=== PATIENT | female | born 1950 | race Caucasian/White ===

== ENCOUNTER 2020-03-17 10:12 | Observation (INO) | payer MEDICARE, OTHER ==
[~2020-03-17] VITALS: Ht 165.1 cm; Wt 89.7 kg
[2020-03-17] MEDS ORDERED: NOVOLOG FL100 UNIT/3 SC (10:47)
[2020-03-17] MEDS ORDERED: LEVEMIR FL100 UNIT/2 SC (10:48)
[2020-03-17] MEDS ORDERED: METO25ER PO (10:49)
[2020-03-17] MEDS ORDERED: Amiodarone HCl200 MG PO (10:49)
[2020-03-17] MEDS ORDERED: ATOR80 PO (10:50)
[2020-03-17] MEDS ORDERED: DEXL60CA3 PO (10:50)
[2020-03-17] MEDS ORDERED: Synthroid200 MCG PO (10:51)
[2020-03-17] MEDS ORDERED: DULO60 PO ×2 (10:52→18:14)
[2020-03-17] MEDS ORDERED: TRAM50 PO (10:52)
[2020-03-17] MEDS ORDERED: COMPAZINE10 MG PO (10:52)
[2020-03-17] MEDS ORDERED: Aspirin EC81 MG PO (10:53)
[2020-03-17 10:55] LABS: BASOPHILS ABSOLUTE AUTO 0.04 K/mm3 (0.00-0.23); BASOPHILS PERCENT AUTO 1 % (0-2); EOSINOPHILS ABSOLUTE AUTO 0.19 K/mm3 (0.00-0.68); EOSINOPHILS PERCENT AUTO 3 % (0-6); Hematocrit 32.5 % (33.0-51.0); Hemoglobin 9.6 g/dL (11.5-16.0); IMMATURE GRAN ABSOLUTE AUTO 0.01 K/mm3 (0.00-0.10); IMMATURE GRAN PERCENT AUTO 0 % (0-1); LYMPHOCYTES ABSOLUTE AUTO 2.72 K/mm3 (0.84-5.20); LYMPHOCYTES PERCENT AUTO 36 % (21-46); MONOCYTES ABSOLUTE AUTO 1.04 K/mm3 (0.16-1.47); MONOCYTES PERCENT AUTO 14 % (4-13); Mean Corpuscular HGB 27.4 pg (26.0-34.0); Mean Corpuscular HGB Conc 29.5 g/dL (31.5-36.5); Mean Corpuscular Volume 93 fL (80-100); Mean Platelet Volume 9.9 fL (9.1-12.4); NEUTROPHILS PERCENT AUTO 47 % (41-73); NRBC ABSOLUTE 0.02 K/mm3 (0.00-0.02); NRBC Auto 0.3 /100 WBC (0.0-0.2); Platelet Count 441 K/mm3 (150-400); RDW Standard Deviation 54.4 fL (35.1-46.3); Red Blood Cell Count 3.51 M/mm3 (3.80-5.20)
[2020-03-17 11:12] LABS: Alanine Aminotransfer (ALT/SGP 18 U/L (12-78); Albumin, Blood 3.4 g/dL (3.4-5.0); Albumin/Globulin Ratio 0.9 (0.8-1.8); Alk Phos 135 U/L (50-136); Anion Gap 7 mmol/L (6-16); Aspartate Aminotrans (AST/SGOT 16 U/L (12-37); Bilirubin, Total 0.6 mg/dL (0.1-1.0); Blood Urea Nitrogen 14 mg/dL (8-24); Bun/Creatinine Ratio 17.2 (12.0-20.0); CO2, Blood 26 mmol/L (21-32); Calcium, Blood 8.8 mg/dL (8.5-10.1); Chloride, Blood 109 mmol/L (98-108); Creatinine, Blood 0.82 mg/dL (0.40-1.00); Globulin, Blood 3.6 g/dL (2.2-4.0); Glomerular Filtration Rate >60 (60-); Glucose, Blood 144 mg/dL (70-99); Potassium, Blood 4.2 mmol/L (3.5-5.5); Sodium, Blood 142 mmol/L (136-145); Troponin I <0.015 ng/mL (0.000-0.040)
[2020-03-17] MEDS ORDERED: SYNTHROID50 MC1 PO (14:06)
[2020-03-17] MEDS ORDERED: DRIZALMA SPRINK30 MG PO (14:06)
[2020-03-17 14:08] LABS: IMMATURE RETIC FRACTION 35.5 % (2.3-16.0); RETIC HGB EQUIVALENT 29.9 pg (28.20-36.60); RETICULOCYTE ABSOLUTE 0.1017 M/mm3 (0.0200-0.1100); RETICULOCYTE COUNT PERCENT 2.99 % (0.50-2.50)
[2020-03-17] MEDS ORDERED: LEVEMIR100 UNIT/1 SC (14:10)
[2020-03-17 14:26] LABS: Percent Saturation 7.1 % (15.0-50.0)
--- NOTE | 2020-03-17 17:00 | NUR ---
CALLED [facility]- ED TO VERIFY ORDER FOR OT DOSE OF VENTOLIN. PT HAS NOT YET RECIEVED. PT LUNG SOUNDS ARE CLEAR T/O AT THIS TIME PT STILL SOB, SATS 95% ON ROOM AIR. ORDER RECIEVED TO DC THE VENTOLIN PT LUNG SOUNDS ARE CLEAR AT THIS TIME. CALLED RT THEY ARE AWARE OF THE ORDER CANCELLATION.
[2020-03-17] MEDS ORDERED: AMIODARONE HCL200 M1 PO (18:18)
--- NOTE | 2020-03-17 18:37 | NUR ---
SHIFT SUMMARY- PT ALERT AND ORIENTED, 1PA FOR TOILETING D/T DYSPNEA ON EXERTION. ADMIT COMPLETED. PT IV WAS INFILTRATED UPON ARRIVAL MULTIPLE ATTEMPTS TO START ONE FAILED, NEW PG WAS PLACED BY TRUCK CAR AND BUS CLEANER DRAWS WELL. ORDER IN PLACE FOR A STOOL SAMPLE WHEN THE PT HAS A BM. PT IS AWARE. WILL PASS THAT ON TO THE NIGHT RN IN REPORT. PT CAN NOT TOLLERATE LAYING DOWN FLAT AND GETS VERY SOB WITH EXERTION BSC FOR SAFETY AT THIS TIME. PT BROUGHT A WRITTEN LIST OF HER PAST MEDICAL HISTORY WELL HER MEDICATIONS PHOTO COPY PLACED IN THE PT CHART. PT NAME AND IS WRITTEN ON EACH PAGE AND THE PAGES ARE NUMBERED. PT STATES SHE OS A BIT FORGETFUL SO HER DOES A LOT OF THE REMEMBERING FOR HER. PT DIABETIC USES [facility], IS BRINGING THAT IN. NEEDS TO BE SENT TO PHARMACY FOR CODING WHEN IT ARRIVES.
--- NOTE | 2020-03-18 04:56 | NUR ---
SHIFT SUMMARY: VSS. AFEB. AAOX4. ABLE TO COMMUNICATE NEEDS. MED FOR BACK PAIN X 1. REPORTS SOB AND MILD CHEST DISCOMFORT D[place] [facility] [place]. LSCTA. TROPONIN WNL TONIGHT. PER TELE LINE MANAGER NSR, 84. PT SLEPT WELL W/NO ACUTE EVENTS OVERNIGHT. WILL CONT TO MONITOR.
[2020-03-18 05:33] LABS: BASOPHILS ABSOLUTE AUTO 0.07 K/mm3 (0.00-0.23); BASOPHILS PERCENT AUTO 1 % (0-2); EOSINOPHILS ABSOLUTE AUTO 0.23 K/mm3 (0.00-0.68); EOSINOPHILS PERCENT AUTO 3 % (0-6); Hemoglobin 9.5 g/dL (11.5-16.0); IMMATURE GRAN ABSOLUTE AUTO 0.01 K/mm3 (0.00-0.10); IMMATURE GRAN PERCENT AUTO 0 % (0-1); LYMPHOCYTES ABSOLUTE AUTO 2.82 K/mm3 (0.84-5.20); LYMPHOCYTES PERCENT AUTO 37 % (21-46); MONOCYTES ABSOLUTE AUTO 1.11 K/mm3 (0.16-1.47); MONOCYTES PERCENT AUTO 15 % (4-13); Mean Corpuscular HGB Conc 30.6 g/dL (31.5-36.5); Mean Corpuscular Volume 91 fL (80-100); Mean Platelet Volume 9.5 fL (9.1-12.4); NEUTROPHILS PERCENT AUTO 44 % (41-73); NRBC ABSOLUTE 0.02 K/mm3 (0.00-0.02); NRBC Auto 0.3 /100 WBC (0.0-0.2); Platelet Count 420 K/mm3 (150-400); Red Blood Cell Count 3.39 M/mm3 (3.80-5.20); White Blood Cell Count 7.54 K/mm3 (4.00-11.30)
[2020-03-18 06:02] LABS: Alanine Aminotransfer (ALT/SGP 17 U/L (12-78); Albumin, Blood 3.1 g/dL (3.4-5.0); Albumin/Globulin Ratio 0.9 (0.8-1.8); Alk Phos 123 U/L (50-136); Anion Gap 6 mmol/L (6-16); Aspartate Aminotrans (AST/SGOT 14 U/L (12-37); Bilirubin, Total 0.6 mg/dL (0.1-1.0); Blood Urea Nitrogen 14 mg/dL (8-24); Bun/Creatinine Ratio 14.5 (12.0-20.0); CO2, Blood 29 mmol/L (21-32); Calcium, Blood 8.8 mg/dL (8.5-10.1); Chloride, Blood 108 mmol/L (98-108); Creatinine, Blood 0.97 mg/dL (0.40-1.00); Globulin, Blood 3.5 g/dL (2.2-4.0); Glomerular Filtration Rate >60 (60-); Glucose, Blood 170 mg/dL (70-99); Potassium, Blood 3.8 mmol/L (3.5-5.5); Sodium, Blood 143 mmol/L (136-145); Total Protein, Blood 6.6 g/dL (6.4-8.2)
--- NOTE | 2020-03-18 09:37 | NUR ---
Patient gave this student permission for care on 03/18/20 at 0930.
--- NOTE | 2020-03-18 14:33 | NUR ---
Patient is sitting up in bed and alert. Patient shares that she moved to [place] a week ago and that the move has been very stressful. Patient also talks about her velez with cancer, the MRSA in her port that almost killed her several other health issues up to the current situation. Patient explains about her lifelong spiritual journey and how despite a few seasons of doubt and struggle her connection to God has been a source of deep love, jovi and strength. I normalize patient's struggle, reinforce helpful attitudes and practices and provide therapeutic listening and prayer. Patient responds well and shows signs of reduced stress. I will continue to remain avaiable to patient and family.
--- NOTE | 2020-03-18 17:06 | NUR ---
SHIFT SUMMARY PT UP TO BATHROOM WITH 1 PERSON ASSIST. SOB WITH ANY ACTIVITY. RESTING PORTION OF STRESS TEST COMPLETED TODAY WITH EXERCISE PORTION SCHEDULED FOR TOMORROW APPROX 1230. FAMILY IN FOR SHORT TIME. NO RESP DISTRESS THAT WASN'T SELF RESOLVING THIS SHIFT.
[2020-03-19 05:47] LABS: Anion Gap 4 mmol/L (6-16); Blood Urea Nitrogen 21 mg/dL (8-24); Bun/Creatinine Ratio 23.4 (12.0-20.0); CO2, Blood 32 mmol/L (21-32); Calcium, Blood 9.1 mg/dL (8.5-10.1); Chloride, Blood 105 mmol/L (98-108); Glomerular Filtration Rate >60 (60-); Glucose, Blood 155 mg/dL (70-99); Potassium, Blood 3.8 mmol/L (3.5-5.5); Sodium, Blood 141 mmol/L (136-145)
--- NOTE | 2020-03-19 06:08 | NUR ---
SHIFT SUMMARY- PT. A&O, INDEP IN ROOM. HAD NO ACUTE EVENTS OVERNIGHT. NO COMPLAINTS OF CP, OCCASIONAL SOB W/EXERTION. PT. SCHEDULED FOR 2ND PART OF STRESS TEST THIS AFTERNOON. HAS BEEN NPO SINCE [place] AND NO [place]. CALL LIGHT WITHIN REACH AND SIDE RAILS UPX2. WILL CONT TO MONITOR.
--- NOTE | 2020-03-19 13:47 | NUR ---
Patient is sitting up in bed and alert. Patient tells me about how difficult her medical conditions have been on her as he has try to love and support her. Patient talks about her the constant push through the fatigue and the desire to be well enough to do things with her . 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 I normalize patient's experience, reinforce helpful attitudes and practices and encourage self-care. Patient responds well and and shows signs of improved peace. I will continue remain available to patient and family.
[2020-03-19] MEDS ORDERED: HUMALOG KW100 UNIT/1 SC (16:27)
[2020-03-19] MEDS ORDERED: Furosemide40 MG PO (16:27)
[2020-03-19] MEDS ORDERED: POTCHL20ER PO (16:28)
--- NOTE | 2020-03-19 17:00 | NUR ---
Discharge Summary A/Ox4, pleasant and cooperative with care. Up in room independently, denies sob, dizziness, weakness. Patient had lexiscan this afternoon. Appetite is great. Tele: SR 88. Denies chest pain/discomfort, nausea. Discharged to home. Reviewed discharge medications with patient and spouse at the bedside. No questions at this time. Copy of discharge paperwork provided. Clarified insulin order with Dr. Hammond, patient to continue home medication Novolog dosing and frequency. Per Dr. Hammond, it would be easier for patient to be on sliding scale, copy of low sliding scale provided. Meds faxed to preferred pharmacy, supervisor cereal appointment set up with Faby Smith. Escorted by TEST DRILLER via w/c with personal belongings. will transport home via personal vehicle. Powerglide removed prior to discharge, WNL.
== END 2020-03-19 17:13 | disposition home or self-care (01) ==
LOC: ER 10:12 → MEDS 10:13
PROVIDERS: Emergency Medicine; Internal Medicine; Nurse Practitioner Acute Care; ADMIT Internal Medicine
DX: R06.09 Other forms of dyspnea (principal); I48.0 Paroxysmal atrial fibrillation; R07.9 Chest pain, unspecified; R77.8 Other specified abnormalities of plasma proteins; I05.0 Rheumatic mitral stenosis; E03.9 Hypothyroidism, unspecified; K21.9 Gastro-esophageal reflux disease without esophagitis; E11.43 Type 2 diabetes mellitus with diabetic autonomic (poly)neuropathy; K31.84 Gastroparesis; C85.90 Non-Hodgkin lymphoma, unspecified, unspecified site; M19.90 Unspecified osteoarthritis, unspecified site; M79.7 Fibromyalgia; F41.0 Panic disorder [episodic paroxysmal anxiety]; F32.9 Major depressive disorder, single episode, unspecified; D50.9 Iron deficiency anemia, unspecified; E66.01 Morbid (severe) obesity due to excess calories; Z68.33 Body mass index [BMI] 33.0-33.9, adult; Z88.0 Allergy status to penicillin; Z88.1 Allergy status to other antibiotic agents; Z88.2 Allergy status to sulfonamides; Z88.5 Allergy status to narcotic agent; Z88.6 Allergy status to analgesic agent; Z88.8 Allergy status to other drugs, medicaments and biological substances; Z79.4 Long term (current) use of insulin; Z79.82 Long term (current) use of aspirin; Z79.891 Long term (current) use of opiate analgesic; Z79.899 Other long term (current) drug therapy; Z87.01 Personal history of pneumonia (recurrent); Z98.1 Arthrodesis status; Z90.49 Acquired absence of other specified parts of digestive tract; Z95.4 Presence of other heart-valve replacement; Z23 Encounter for immunization
CPT/HCPCS: 71045; 71260; 78452; 80048; 80053; 82607; 82728; 82746; 82947; 83540; 83550; 83735; 83880; 84443; 84484; 85025; 85045; 85651; 86140; 93005; 93010; 93017; 93306; 94760; 96374-59; 98960; 99285-25; A9270-GY; A9500; C1751; J0706; J1650; J1940; J2785; Q9967

== ENCOUNTER 2020-10-12 09:48 | Emergency (ER) | payer MEDICARE ==
[~2020-10-12] VITALS: Ht 165.1 cm; Wt 88.5 kg
[~2020-10-12 09:48] MED LIST: AMIODARONE HCL200 M1 PO; ATOR80 PO; Amiodarone HCl200 MG PO; Aspirin EC81 MG PO; COMPAZINE10 MG PO; DEXL60CA3 PO; DRIZALMA SPRINK30 MG PO; DULO60 PO; Furosemide40 MG PO; HUMALOG KW100 UNIT/1 SC; LEVEMIR FL100 UNIT/2 SC; LEVEMIR100 UNIT/1 SC; METO25ER PO; NOVOLOG FL100 UNIT/3 SC; POTCHL20ER PO; SYNTHROID50 MC1 PO; Synthroid200 MCG PO; TRAM50 PO
[2020-10-12] MEDS ORDERED: OMEP20ER PO (10:04)
[2020-10-12] MEDS ORDERED: LISINOPRIL2.5 MG PO (10:04)
[2020-10-12] MEDS ORDERED: METFORMIN HCL500 M3 PO (10:04)
[2020-10-12] MEDS ORDERED: CYCL10 PO (12:24)
== END 2020-10-12 13:05 | disposition home or self-care (01) ==
LOC: ER 09:48
DX: S16.1XXA Strain of muscle, fascia and tendon at neck level, initial encounter (principal); M43.6 Torticollis; Z79.82 Long term (current) use of aspirin; Z79.4 Long term (current) use of insulin; Z79.899 Other long term (current) drug therapy; Z88.0 Allergy status to penicillin; Z88.5 Allergy status to narcotic agent; Z88.8 Allergy status to other drugs, medicaments and biological substances; Z88.2 Allergy status to sulfonamides
CPT/HCPCS: 96374; 96375; 99283-25; A9270; J1885; J3010

== ENCOUNTER 2021-08-31 16:09 | Observation (INO) | payer MEDICARE ==
[~2021-08-31] VITALS: Ht 165.1 cm; Wt 91.9 kg
[~2021-08-31 16:09] MED LIST changes: +CYCL10 PO; +LISINOPRIL2.5 MG PO; +METFORMIN HCL500 M3 PO; +OMEP20ER PO
[2021-08-31 17:01] LABS: BASOPHILS ABSOLUTE AUTO 0.04 K/mm3 (0.00-0.23); BASOPHILS PERCENT AUTO 0 % (0-2); EOSINOPHILS ABSOLUTE AUTO 0.15 K/mm3 (0.00-0.68); EOSINOPHILS PERCENT AUTO 1 % (0-6); Hematocrit 44.9 % (33.0-51.0); Hemoglobin 14.5 g/dL (11.5-16.0); IMMATURE GRAN ABSOLUTE AUTO 0.04 K/mm3 (0.00-0.10); IMMATURE GRAN PERCENT AUTO 0 % (0-1); LYMPHOCYTES ABSOLUTE AUTO 4.57 K/mm3 (0.84-5.20); LYMPHOCYTES PERCENT AUTO 41 % (21-46); MONOCYTES ABSOLUTE AUTO 1.04 K/mm3 (0.16-1.47); MONOCYTES PERCENT AUTO 9 % (4-13); Mean Corpuscular HGB 31.2 pg (26.0-34.0); Mean Corpuscular HGB Conc 32.3 g/dL (31.5-36.5); Mean Corpuscular Volume 97 fL (80-100); Mean Platelet Volume 10.4 fL (9.1-12.4); NEUTROPHILS PERCENT AUTO 48 % (41-73); Platelet Count 296 K/mm3 (150-400); RDW Coefficient Variation 13.7 % (11.7-14.2); RDW Standard Deviation 48.6 fL (35.1-46.3); Red Blood Cell Count 4.65 M/mm3 (3.80-5.20); White Blood Cell Count 11.24 K/mm3 (4.00-11.30)
[2021-08-31 17:26] LABS: Albumin, Blood 3.6 g/dL (3.4-5.0); Albumin/Globulin Ratio 0.9 (0.8-1.8); Bilirubin, Total 0.6 mg/dL (0.1-1.0); Bun/Creatinine Ratio 25.8 (12.0-20.0); Calcium, Blood 9.6 mg/dL (8.5-10.1); Creatinine, Blood 0.97 mg/dL (0.40-1.00); Globulin, Blood 4.2 g/dL (2.2-4.0); Potassium, Blood 4.3 mmol/L (3.5-5.5); Total Protein, Blood 7.8 g/dL (6.4-8.2)
[2021-08-31 19:35] LABS: Source, Urine Clean Catch
[2021-08-31 19:54] LABS: Bilirubin, Urine Neg (Neg); Blood, Urine Neg (Neg); Glucose Qualitative, Urine Neg (Neg); Ketones, Urine 1+ (Neg); Leukocyte Esterase, Urine 2+ (Neg); Nitrite, Urine Neg (Neg); Protein, Urine 1+ (Neg); Specific Gravity, Urine 1.025 (1.003-1.022); Urobilinogen, Urine NORM (Normal)
[2021-08-31 20:18] LABS: Appearance, Urine Hazy (Clear); Color, Urine Yellow (P-Yellow)
[2021-08-31 20:19] LABS: Bacteria Many /hpf; Red Blood Cells, Urine Not Seen /hpf (0-2); Squamous Epithelial Cells Few /hpf (Few)
[2021-08-31] MEDS ORDERED: NOVOLOG FL100 UNIT/3 (20:54)
[2021-08-31] MEDS ORDERED: LISI5 PO (20:55)
--- NOTE | 2021-09-01 04:02 | NUR ---
SHIFT SUMMARY: Patient arrived to room 308 via gurney with ER staff, A&O however has difficulty recalling the events that lead to hospitaliztion, kathy also has difficulty recalling health history and medications, she states her forgetfullness is baseline for her since chemo however states it seemed to get worse prior to admit, VSS on RA, denies pain and shortness of breath, up to the restroom with SBA, tele SR in the 80s, education provided about medications and plan of care
[2021-09-01 05:13] LABS: Anion Gap 8 mmol/L (6-16); Blood Urea Nitrogen 24 mg/dL (8-24); Bun/Creatinine Ratio 29.4 (12.0-20.0); CHOL/HDL RATIO 3.3; CO2, Blood 25 mmol/L (21-32); Chloride, Blood 108 mmol/L (98-108); Cholesterol 168 mg/dL (50-200); Creatinine, Blood 0.82 mg/dL (0.40-1.00); Glomerular Filtration Rate >60 (60-); Glucose, Blood 171 mg/dL (70-99); HDL Cholesterol 51 mg/dL (>39); LDL/HDL RATIO 1.5; Low Density Lipoprotein Chol 76 mg/dL (0-110); Potassium, Blood 4.1 mmol/L (3.5-5.5); Sodium, Blood 141 mmol/L (136-145); Triglycerides 203 mg/dL (30-160); Very Low Density Lipoprot Chol 40 mg/dL (6-32)
--- NOTE | 2021-09-01 17:21 | NUR ---
NEUROS WNL, CMS INTACT. NO WEAKNESS NOTED, PT/OT/PARKING TECHNICIAN EVALUATED PT TODAY. VITALS STABLE, PT RESTING COMFORTABLY IN BED. MRI WILL TAKE PT AT 1730 FOR SCAN. CBGS WNL, SSI GIVEN.
--- NOTE | 2021-09-02 04:03 | NUR ---
SHIFT SUMMARY NO ACUTE CHANGES TO PT CONDITION. PT SLEEPING THROUGHOUT THE NIGHT. CALL LIGHT WITHIN HER REACH AND WILL CONTINUE TO MONITOR. PT TO POSSIBLY BE DISCHARGED TODAY.
[2021-09-02 05:38] LABS: Anion Gap 8 mmol/L (6-16); Blood Urea Nitrogen 18 mg/dL (8-24); Bun/Creatinine Ratio 18.6 (12.0-20.0); CO2, Blood 25 mmol/L (21-32); Calcium, Blood 8.9 mg/dL (8.5-10.1); Chloride, Blood 109 mmol/L (98-108); Creatinine, Blood 0.97 mg/dL (0.40-1.00); Glomerular Filtration Rate 57 (60-); Glucose, Blood 235 mg/dL (70-99); Magnesium, Blood 2.1 mg/dL (1.6-2.4); Phosphorus, Blood 2.8 mg/dL (2.5-4.9); Potassium, Blood 4.1 mmol/L (3.5-5.5); Sodium, Blood 142 mmol/L (136-145)
[2021-09-02 05:50] LABS: BASOPHILS ABSOLUTE AUTO 0.06 K/mm3 (0.00-0.23); BASOPHILS PERCENT AUTO 1 % (0-2); EOSINOPHILS ABSOLUTE AUTO 0.22 K/mm3 (0.00-0.68); EOSINOPHILS PERCENT AUTO 3 % (0-6); Hematocrit 40.7 % (33.0-51.0); Hemoglobin 13.5 g/dL (11.5-16.0); IMMATURE GRAN ABSOLUTE AUTO 0.04 K/mm3 (0.00-0.10); IMMATURE GRAN PERCENT AUTO 1 % (0-1); LYMPHOCYTES ABSOLUTE AUTO 4.06 K/mm3 (0.84-5.20); LYMPHOCYTES PERCENT AUTO 48 % (21-46); MONOCYTES PERCENT AUTO 14 % (4-13); Mean Corpuscular HGB 31.6 pg (26.0-34.0); Mean Corpuscular HGB Conc 33.2 g/dL (31.5-36.5); Mean Corpuscular Volume 95 fL (80-100); Mean Platelet Volume 10.9 fL (9.1-12.4); NEUTROPHILS ABSOLUTE AUTO 2.81 K/mm3 (1.96-9.15); NEUTROPHILS PERCENT AUTO 34 % (41-73); Platelet Count 259 K/mm3 (150-400); RDW Coefficient Variation 13.7 % (11.7-14.2); RDW Standard Deviation 48.1 fL (35.1-46.3); Red Blood Cell Count 4.27 M/mm3 (3.80-5.20); White Blood Cell Count 8.39 K/mm3 (4.00-11.30)
[2021-09-02] MEDS ORDERED: PANT40 PO (12:16)
--- NOTE | 2021-09-02 13:41 | NUR ---
PT DISCHARGED HOME TODAY. NEW MEDICATION ORDERS, STARTING PLAVIX. PHARMACIST AT BEDSIDE PROVIDING EDU ON NEW MEDS. TECH FROM [facility] CAME AND PROVIDED EDUCATION AND PLACED ZIOPATCH. PT LEFT MEDICAL FLOOR AT 1245.
--- NOTE | 2021-09-02 14:55 | NUR ---
Received referral from [facility] Mat Worker (Teresa Cotto) on 09/01/2021. Patient was admitted to [facility] on 08/31/2021 due to CVA. Patient was to discharge 09/02/2021 with orders for home health and elected [facility]. However, review of patient's records indicate that discharging hospitalist (Dr. Toledo) did not order home health for patient upon discharge. No further interventions required. Yeni Echeverria Referral Liaison
== END 2021-09-02 13:05 | disposition home or self-care (01) ==
LOC: ER 16:09 → MEDS 16:10
PROVIDERS: Family Medicine; Physician Assistant; Student in an Organized Health Care Education/Training Program; ADMIT Internal Medicine
DX: I63.29 Cerebral infarction due to unspecified occlusion or stenosis of other precerebral arteries (principal); R27.8 Other lack of coordination; R41.0 Disorientation, unspecified; E11.43 Type 2 diabetes mellitus with diabetic autonomic (poly)neuropathy; K31.84 Gastroparesis; I10 Essential (primary) hypertension; K21.9 Gastro-esophageal reflux disease without esophagitis; Z88.5 Allergy status to narcotic agent; Z88.0 Allergy status to penicillin; Z88.2 Allergy status to sulfonamides; Z88.8 Allergy status to other drugs, medicaments and biological substances; Z85.71 Personal history of Hodgkin lymphoma; Z79.4 Long term (current) use of insulin
CPT/HCPCS: 36415; 70450; 70496; 70498; 70551; 80048; 80053; 80061; 80069; 81001; 82947; 83735; 85025; 87086; 92610; 93005; 93010; 93246; 93306; 94762; 97110; 97162; 97165; 97530; 99285-25; A9270; J1650; J7030; Q9967

== ENCOUNTER → 2023-01-17 | Outpatient (CLI) | payer MEDICARE ==
[~2023-01-17] MED LIST changes: +LISI5 PO; +NOVOLOG FL100 UNIT/3; +ONDA4 PO; +PANT40 PO; +PROC5 PO
[2023-01-17 16:18] LABS: Campylobacter Sp Not Detected (NOT DETECT); Enteroaggregative E. coli-EAEC Not Detected (NOT DETECT); Enterotoxigenic E. coli-ETEC Not Detected (NOT DETECT); Plesiomonas Shigelloides Not Detected (NOT DETECT); Salmonella Sp Not Detected (NOT DETECT); Vibrio Cholerae Not Detected (NOT DETECT); Vibrio Sp Not Detected (NOT DETECT); Yersinia Enterocolitica Not Detected (NOT DETECT)
[2023-01-17 16:19] LABS: Adenovirus F 40/41 Not Detected (NOT DETECT); Astrovirus Not Detected (NOT DETECT); Cryptosporidium Not Detected (NOT DETECT); Cyclospora Cayetanensis Not Detected (NOT DETECT); E. Coli O157 Not Detected (NOT DETECT); Entamoeba Histolytica Not Detected (NOT DETECT); Enteropathogenic E. coli-EPEC Not Detected (NOT DETECT); Giardia Lamblia Not Detected (NOT DETECT); Norovirus GI/GII Not Detected (NOT DETECT); Rotavirus A Not Detected (NOT DETECT); Sapovirus Not Detected (NOT DETECT); Shiga Toxin-prod E. coli-STEC Not Detected (NOT DETECT); Shigella/Enteroin E. coli-EIEC Not Detected (NOT DETECT)
== END | disposition home or self-care (01) ==
LOC: LAB SHORT 11:18 → LAB 11:18
PROVIDERS: Family Medicine
DX: A09 Infectious gastroenteritis and colitis, unspecified (principal)
CPT/HCPCS: 83993; 87507

== ENCOUNTER → 2023-06-19 | Outpatient (CLI) | payer MEDICARE ==
[~2023-06-19] MED LIST changes: +CHOLP PO; +ELIQUIS5 M2 PO; -LEVEMIR FL100 UNIT/2 SC; -LISI5 PO; -PANT40 PO; +PROTONIX4010 PO; +Prinivil10 MG PO; +Vitamin D1000 UNI1 PO; +[UNRECOGNIZED DRUG - OTHER] SC
== END ==
LOC: LAB SHORT 11:10 → LAB EV 11:10
DX: N39.0 Urinary tract infection, site not specified (principal)
CPT/HCPCS: 87077; 87086; 87186

== ENCOUNTER 2023-06-28 11:47 | Day surgery (SDC) | payer MEDICARE ==
[~2023-06-28] VITALS: Ht 165.1 cm; Wt 83.8 kg
[~2023-06-28 11:47] MED LIST changes: +Lactated Ringer's 1,000 ML IV ONE; +propofoL 20 ML IV ONE; +propofoL 40 ML IV ONE
[2023-06-28] MEDS ORDERED: Lactated Ringer's 1,000 ML IV ONE (12:53)
--- NOTE | 2023-06-28 12:55 | NUR ---
06/28/23 1255 Lorena Cobos PT AMBULATORY TO PRE OP ROOM. PT REPORTS "LIGHT HEADEDNESS" WHEN GETTING UP TO WALK. VSS. 4 ATTEMPTS AT IV. PT TOW. SPOUSE HERE TO DRIVE PT HOME.
[2023-06-28 15:06] VITALS: BP 109/63
--- NOTE | 2023-06-28 15:23 | NUR ---
06/28/23 1523 Kelly Renner 1512: ON THE WAY TO THE CAR, PATIENT REPORTED THAT CRAMPING FEELING WAS IMPROVING AND WAS ALMOST GONE.
== END 2023-06-28 15:12 | disposition home or self-care (01) ==
LOC: ORSCSDS 11:47
PROVIDERS: Surgery
PROC: 0DDE8ZX Extraction of Large Intestine, Via Natural or Artificial Opening Endoscopic, Diagnostic (ICD-10-PCS; principal; 2023-06-28 13:00)
PROC: 0DB68ZX Excision of Stomach, Via Natural or Artificial Opening Endoscopic, Diagnostic (ICD-10-PCS; principal; 2023-06-28 13:00)
PROC: 0DBE8ZX Excision of Large Intestine, Via Natural or Artificial Opening Endoscopic, Diagnostic (ICD-10-PCS; principal; 2023-06-28 13:00)
PROC: 0DB98ZX Excision of Duodenum, Via Natural or Artificial Opening Endoscopic, Diagnostic (ICD-10-PCS; principal; 2023-06-28 13:00)
DX: R19.7 Diarrhea, unspecified (principal); R10.13 Epigastric pain; K21.9 Gastro-esophageal reflux disease without esophagitis; E11.43 Type 2 diabetes mellitus with diabetic autonomic (poly)neuropathy; K31.84 Gastroparesis; F41.9 Anxiety disorder, unspecified; Z87.11 Personal history of peptic ulcer disease; Z86.73 Personal history of transient ischemic attack (TIA), and cerebral infarction without residual deficits; Z85.72 Personal history of non-Hodgkin lymphomas; E78.00 Pure hypercholesterolemia, unspecified; I10 Essential (primary) hypertension; E03.9 Hypothyroidism, unspecified; Z79.01 Long term (current) use of anticoagulants; Z79.4 Long term (current) use of insulin; Z79.899 Other long term (current) drug therapy
CPT/HCPCS: 82947; 88305; 88342; J2704; J7120

== ENCOUNTER → 2024-02-25 | Outpatient (CLI) | payer MEDICARE ==
[~2024-02-25] MED LIST changes: -Lactated Ringer's 1,000 ML IV ONE; -propofoL 20 ML IV ONE; -propofoL 40 ML IV ONE
== END | disposition home or self-care (01) ==
LOC: LAB 16:34 → LAB SHORT 16:34
DX: E11.621 Type 2 diabetes mellitus with foot ulcer (principal); L97.519 Non-pressure chronic ulcer of other part of right foot with unspecified severity; E11.69 Type 2 diabetes mellitus with other specified complication; M86.171 Other acute osteomyelitis, right ankle and foot
CPT/HCPCS: 88305; 88311

== ENCOUNTER 2024-03-06 00:43 | Day surgery (SDC) | payer MEDICARE ==
[~2024-03-06] VITALS: Ht 165.1 cm; Wt 89.1 kg
[2024-03-06] MEDS ORDERED: Vancomycin HCL 1,000 MG in NS 250 ML IV SCH (06:00)
[2024-03-06 07:45] VITALS: BP 130/72
[2024-03-06] MEDS ORDERED: Vancomycin HCL 500 MG in NS 250 ML IV SCH (08:55)
--- NOTE | 2024-03-06 10:49 | NUR ---
patient reaction whila vanco nearly complete. PATIENT WAS TO RECIEVE A TOTAL DOSE OF 1500 MG VANCO. WITH APPROX 15 MINUTES LEFT IN INFUSION, RN WENT INTO ROOM TO DISCUSS TX PLAN WITH PATIENT AND PATIENT HAD A RED BLOTCHY HIVELIKE RASH TO FACE AND NECK AND C/O ITCHING AND NAUSEA. SHE DENIED CHEST PAIN OR SOB. NO SWELLING NOTED. NO RASH NOTED TO ARMS BUT SHE COMPLAINS THEY ARE ITCHY. SHE SAYS SHE FEELS FLUSHED. MEDICATION STOPPED AND RN STAYED WITH PATIENT FOR 5 MIN AND SYMPTOMS REMAINED UNCHANGED. SHE DID SAY THE NAUSEA SUBSIDED AND THAT SHE DID NOT FEEL WARM AND FLUSHED. NOTIFIED DR BARRY WHO CHANGED HER MEDICATION TO DAPTOMYCIN WHICH WILL START TOMORROW. ADDITIONAL LABS ORDERED FOR MONITORING WHICH WILL BE DRAWN TOMORROW.
[2024-03-07] MEDS ORDERED: NS IV SCH (06:00)
[2024-03-07] MEDS ORDERED: DAPTOMYCIN IV SCH (06:00)
[2024-03-07] MEDS ORDERED: DAPTOMYCIN500 M3 IV (11:38)
== END 2024-03-06 10:25 | disposition home or self-care (01) ==
LOC: ATC 00:43
DX: E11.69 Type 2 diabetes mellitus with other specified complication (principal); M86.171 Other acute osteomyelitis, right ankle and foot; E11.43 Type 2 diabetes mellitus with diabetic autonomic (poly)neuropathy; E11.51 Type 2 diabetes mellitus with diabetic peripheral angiopathy without gangrene; K21.9 Gastro-esophageal reflux disease without esophagitis; Z79.01 Long term (current) use of anticoagulants; Z79.4 Long term (current) use of insulin; Z88.5 Allergy status to narcotic agent; Z88.0 Allergy status to penicillin; Z88.2 Allergy status to sulfonamides; Z79.899 Other long term (current) drug therapy; Z88.8 Allergy status to other drugs, medicaments and biological substances; Z90.710 Acquired absence of both cervix and uterus; Z90.49 Acquired absence of other specified parts of digestive tract
CPT/HCPCS: 96365; 96366; C1751; J3370; J7050

== ENCOUNTER 2024-03-07 00:25 | Day surgery (SDC) | payer MEDICARE ==
[2024-03-07] MEDS ORDERED: DAPTOmycin 350 MG in NS 50 ML IV SCH (07:00)
[2024-03-07 10:18] VITALS: BP 132/77
[2024-03-07 11:25] LABS: BASOPHILS ABSOLUTE AUTO 0.05 K/mm3 (0.00-0.23); BASOPHILS PERCENT AUTO 1 % (0-2); EOSINOPHILS ABSOLUTE AUTO 0.18 K/mm3 (0.00-0.68); EOSINOPHILS PERCENT AUTO 2 % (0-6); Hemoglobin 11.8 g/dL (11.5-16.0); IMMATURE GRAN ABSOLUTE AUTO 0.02 K/mm3 (0.00-0.10); IMMATURE GRAN PERCENT AUTO 0 % (0-1); LYMPHOCYTES ABSOLUTE AUTO 3.39 K/mm3 (0.84-5.20); LYMPHOCYTES PERCENT AUTO 39 % (21-46); MONOCYTES ABSOLUTE AUTO 0.92 K/mm3 (0.16-1.47); MONOCYTES PERCENT AUTO 11 % (4-13); Mean Corpuscular HGB 31.1 pg (26.0-34.0); Mean Corpuscular HGB Conc 31.9 g/dL (31.5-36.5); Mean Corpuscular Volume 97 fL (80-100); Mean Platelet Volume 11.5 fL (9.1-12.4); NEUTROPHILS ABSOLUTE AUTO 4.09 K/mm3 (1.96-9.15); NEUTROPHILS PERCENT AUTO 47 % (41-73); Platelet Count 337 K/mm3 (150-400); RDW Coefficient Variation 15.6 % (11.7-14.2); RDW Standard Deviation 55.4 fL (35.1-46.3); White Blood Cell Count 8.65 K/mm3 (4.00-11.30)
[2024-03-07] MEDS ORDERED: DAPTOMYCIN500 M3 IV (11:38)
[2024-03-07 11:48] LABS: Albumin/Globulin Ratio 0.8 (0.8-1.8); Bilirubin, Total 0.6 mg/dL (0.1-1.0); Bun/Creatinine Ratio 14.3 (12.0-20.0); C-REACTIVE PROTEIN, EXT RANGE 0.372 mg/dL (0.000-0.300); Calcium, Blood 8.9 mg/dL (8.5-10.1); Creatinine, Blood 1.05 mg/dL (0.40-1.00); Globulin, Blood 3.8 g/dL (2.2-4.0); Potassium, Blood 4.2 mmol/L (3.5-5.5); Total Protein, Blood 6.8 g/dL (6.4-8.2)
== END 2024-03-07 10:50 | disposition home or self-care (01) ==
LOC: ATC 00:25
PROVIDERS: Podiatrist Foot & Ankle Surgery
DX: E11.69 Type 2 diabetes mellitus with other specified complication (principal); M86.171 Other acute osteomyelitis, right ankle and foot; K21.9 Gastro-esophageal reflux disease without esophagitis; E11.51 Type 2 diabetes mellitus with diabetic peripheral angiopathy without gangrene; Z79.899 Other long term (current) drug therapy; Z79.84 Long term (current) use of oral hypoglycemic drugs; Z88.0 Allergy status to penicillin; Z88.2 Allergy status to sulfonamides; Z88.5 Allergy status to narcotic agent; Z88.8 Allergy status to other drugs, medicaments and biological substances
CPT/HCPCS: 80053; 82550; 85025; 85651; 86140; 96365; J0878

== ENCOUNTER 2024-03-08 00:21 | Day surgery (SDC) | payer MEDICARE ==
[~2024-03-08 00:21] MED LIST changes: +DAPTOMYCIN500 M3 IV
[2024-03-08] MEDS ORDERED: DAPTOmycin 350 MG in NS 50 ML IV SCH (06:00)
[2024-03-08 09:01] VITALS: BP 132/63
== END 2024-03-08 09:32 | disposition home or self-care (01) ==
LOC: ATC 00:21
DX: E11.69 Type 2 diabetes mellitus with other specified complication (principal); M86.171 Other acute osteomyelitis, right ankle and foot; E11.51 Type 2 diabetes mellitus with diabetic peripheral angiopathy without gangrene; M20.21 Hallux rigidus, right foot; K21.9 Gastro-esophageal reflux disease without esophagitis; E11.43 Type 2 diabetes mellitus with diabetic autonomic (poly)neuropathy; Z79.4 Long term (current) use of insulin; Z79.01 Long term (current) use of anticoagulants; Z79.899 Other long term (current) drug therapy; Z88.5 Allergy status to narcotic agent; Z88.1 Allergy status to other antibiotic agents; Z88.8 Allergy status to other drugs, medicaments and biological substances; Z90.49 Acquired absence of other specified parts of digestive tract; Z90.710 Acquired absence of both cervix and uterus
CPT/HCPCS: 96365; J0878

== ENCOUNTER 2024-03-09 09:22 | Day surgery (SDC) | payer MEDICARE ==
[~2024-03-09 09:22] MED LIST changes: +DAPTOmycin 350 MG in NS 50 ML IV SCH
[2024-03-09 09:26] VITALS: BP 129/72
== END 2024-03-09 09:57 | disposition home or self-care (01) ==
LOC: ATC 09:22
DX: E11.69 Type 2 diabetes mellitus with other specified complication (principal); M86.171 Other acute osteomyelitis, right ankle and foot; E11.43 Type 2 diabetes mellitus with diabetic autonomic (poly)neuropathy; K21.9 Gastro-esophageal reflux disease without esophagitis; E11.51 Type 2 diabetes mellitus with diabetic peripheral angiopathy without gangrene; M20.21 Hallux rigidus, right foot; Z79.4 Long term (current) use of insulin; Z79.01 Long term (current) use of anticoagulants; Z79.899 Other long term (current) drug therapy; Z88.5 Allergy status to narcotic agent; Z88.1 Allergy status to other antibiotic agents; Z88.0 Allergy status to penicillin; Z88.2 Allergy status to sulfonamides; Z88.8 Allergy status to other drugs, medicaments and biological substances; Z90.49 Acquired absence of other specified parts of digestive tract; Z90.710 Acquired absence of both cervix and uterus
CPT/HCPCS: 96365; J0878

== ENCOUNTER 2024-03-10 02:08 | Day surgery (SDC) | payer MEDICARE ==
[~2024-03-10 02:08] MED LIST changes: -DAPTOmycin 350 MG in NS 50 ML IV SCH
[2024-03-10] MEDS ORDERED: DAPTOmycin 350 MG in NS 50 ML IV SCH (06:00)
[2024-03-10 09:30] VITALS: BP 134/68
== END 2024-03-10 09:49 | disposition home or self-care (01) ==
LOC: ATC 02:08
DX: E11.69 Type 2 diabetes mellitus with other specified complication (principal); M86.171 Other acute osteomyelitis, right ankle and foot; M20.21 Hallux rigidus, right foot; E11.51 Type 2 diabetes mellitus with diabetic peripheral angiopathy without gangrene; Z79.01 Long term (current) use of anticoagulants; Z79.4 Long term (current) use of insulin; Z79.899 Other long term (current) drug therapy; Z88.5 Allergy status to narcotic agent; Z88.0 Allergy status to penicillin; Z88.2 Allergy status to sulfonamides; Z88.1 Allergy status to other antibiotic agents; Z88.8 Allergy status to other drugs, medicaments and biological substances; Z90.710 Acquired absence of both cervix and uterus; Z90.49 Acquired absence of other specified parts of digestive tract
CPT/HCPCS: 96365; J0878

== ENCOUNTER 2024-03-12 00:58 | Day surgery (SDC) | payer MEDICARE ==
[2024-03-12] MEDS ORDERED: DAPTOmycin 350 MG in NS 50 ML IV SCH (06:00)
[2024-03-12 09:25] VITALS: BP 138/72
== END 2024-03-12 09:50 | disposition home or self-care (01) ==
LOC: ATC 00:58
DX: E11.69 Type 2 diabetes mellitus with other specified complication (principal); M86.171 Other acute osteomyelitis, right ankle and foot; K21.9 Gastro-esophageal reflux disease without esophagitis; E11.51 Type 2 diabetes mellitus with diabetic peripheral angiopathy without gangrene; Z79.899 Other long term (current) drug therapy; Z88.0 Allergy status to penicillin; Z88.2 Allergy status to sulfonamides; Z88.5 Allergy status to narcotic agent; Z88.8 Allergy status to other drugs, medicaments and biological substances
CPT/HCPCS: 96365; J0878

== ENCOUNTER 2024-03-13 03:26 | Day surgery (SDC) | payer MEDICARE ==
[2024-03-13] MEDS ORDERED: DAPTOmycin 350 MG in NS 50 ML IV SCH (06:00)
[2024-03-13 09:45] VITALS: BP 137/69
== END 2024-03-13 10:05 | disposition home or self-care (01) ==
LOC: ATC 03:26
DX: E11.69 Type 2 diabetes mellitus with other specified complication (principal); M86.171 Other acute osteomyelitis, right ankle and foot; E11.43 Type 2 diabetes mellitus with diabetic autonomic (poly)neuropathy; K31.84 Gastroparesis; K21.9 Gastro-esophageal reflux disease without esophagitis; E11.51 Type 2 diabetes mellitus with diabetic peripheral angiopathy without gangrene; Z79.899 Other long term (current) drug therapy; Z79.84 Long term (current) use of oral hypoglycemic drugs; Z88.0 Allergy status to penicillin; Z88.1 Allergy status to other antibiotic agents; Z88.2 Allergy status to sulfonamides; Z88.5 Allergy status to narcotic agent; Z88.8 Allergy status to other drugs, medicaments and biological substances
CPT/HCPCS: 96365; J0878

== ENCOUNTER 2024-03-14 02:48 | Day surgery (SDC) | payer MEDICARE ==
[2024-03-14] MEDS ORDERED: DAPTOmycin 350 MG in NS 50 ML IV SCH (06:00)
[2024-03-14 09:38] VITALS: BP 140/61
[2024-03-14 10:20] LABS: BASOPHILS ABSOLUTE AUTO 0.05 K/mm3 (0.00-0.23); BASOPHILS PERCENT AUTO 1 % (0-2); EOSINOPHILS PERCENT AUTO 3 % (0-6); Hemoglobin 11.9 g/dL (11.5-16.0); IMMATURE GRAN ABSOLUTE AUTO 0.01 K/mm3 (0.00-0.10); IMMATURE GRAN PERCENT AUTO 0 % (0-1); LYMPHOCYTES ABSOLUTE AUTO 3.31 K/mm3 (0.84-5.20); LYMPHOCYTES PERCENT AUTO 41 % (21-46); MONOCYTES ABSOLUTE AUTO 0.86 K/mm3 (0.16-1.47); MONOCYTES PERCENT AUTO 11 % (4-13); Mean Corpuscular HGB 30.6 pg (26.0-34.0); Mean Corpuscular HGB Conc 32.2 g/dL (31.5-36.5); Mean Corpuscular Volume 95 fL (80-100); NEUTROPHILS ABSOLUTE AUTO 3.57 K/mm3 (1.96-9.15); NEUTROPHILS PERCENT AUTO 45 % (41-73); Platelet Count 345 K/mm3 (150-400); RDW Coefficient Variation 14.8 % (11.7-14.2); RDW Standard Deviation 52.5 fL (35.1-46.3); Red Blood Cell Count 3.89 M/mm3 (3.80-5.20)
[2024-03-14 10:44] LABS: Albumin, Blood 3.2 g/dL (3.4-5.0); Albumin/Globulin Ratio 0.8 (0.8-1.8); Bilirubin, Total 0.5 mg/dL (0.1-1.0); Bun/Creatinine Ratio 21.5 (12.0-20.0); C-REACTIVE PROTEIN, EXT RANGE 0.659 mg/dL (0.000-0.300); Calcium, Blood 9.1 mg/dL (8.5-10.1); Creatinine, Blood 0.88 mg/dL (0.40-1.00); Potassium, Blood 4.2 mmol/L (3.5-5.5); Total Protein, Blood 7.2 g/dL (6.4-8.2)
== END 2024-03-14 09:57 | disposition home or self-care (01) ==
LOC: ATC 02:48
PROVIDERS: Podiatrist Foot & Ankle Surgery
DX: E11.69 Type 2 diabetes mellitus with other specified complication (principal); M86.171 Other acute osteomyelitis, right ankle and foot; K21.9 Gastro-esophageal reflux disease without esophagitis; E11.43 Type 2 diabetes mellitus with diabetic autonomic (poly)neuropathy; K31.84 Gastroparesis; E11.51 Type 2 diabetes mellitus with diabetic peripheral angiopathy without gangrene; M20.21 Hallux rigidus, right foot; Z79.4 Long term (current) use of insulin; Z79.01 Long term (current) use of anticoagulants; Z79.899 Other long term (current) drug therapy; Z88.5 Allergy status to narcotic agent; Z88.0 Allergy status to penicillin; Z88.2 Allergy status to sulfonamides; Z88.1 Allergy status to other antibiotic agents; Z88.8 Allergy status to other drugs, medicaments and biological substances; Z90.49 Acquired absence of other specified parts of digestive tract; Z90.710 Acquired absence of both cervix and uterus
CPT/HCPCS: 80053; 82550; 85025; 85651; 86140; J0878

== ENCOUNTER 2024-03-15 00:07 | Day surgery (SDC) | payer MEDICARE ==
[2024-03-15] MEDS ORDERED: DAPTOmycin 350 MG in NS 50 ML IV SCH (06:00)
[2024-03-15 09:36] VITALS: BP 120/67
== END 2024-03-15 09:59 | disposition home or self-care (01) ==
LOC: ATC 00:07
DX: E11.69 Type 2 diabetes mellitus with other specified complication (principal); M86.171 Other acute osteomyelitis, right ankle and foot; E11.43 Type 2 diabetes mellitus with diabetic autonomic (poly)neuropathy; K31.84 Gastroparesis; E11.51 Type 2 diabetes mellitus with diabetic peripheral angiopathy without gangrene; M20.21 Hallux rigidus, right foot; K21.9 Gastro-esophageal reflux disease without esophagitis; Z79.4 Long term (current) use of insulin; Z79.01 Long term (current) use of anticoagulants; Z79.899 Other long term (current) drug therapy; Z90.710 Acquired absence of both cervix and uterus; Z90.49 Acquired absence of other specified parts of digestive tract; Z88.5 Allergy status to narcotic agent; Z88.0 Allergy status to penicillin; Z88.1 Allergy status to other antibiotic agents; Z88.2 Allergy status to sulfonamides; Z88.8 Allergy status to other drugs, medicaments and biological substances
CPT/HCPCS: 96365; J0878

== ENCOUNTER 2024-03-16 09:21 | Day surgery (SDC) | payer MEDICARE ==
[~2024-03-16 09:21] MED LIST changes: +DAPTOmycin 350 MG in NS 50 ML IV SCH
[2024-03-16 09:38] VITALS: BP 123/62
== END 2024-03-16 09:59 | disposition home or self-care (01) ==
LOC: ATC 09:21
DX: E11.69 Type 2 diabetes mellitus with other specified complication (principal); M86.171 Other acute osteomyelitis, right ankle and foot; E11.51 Type 2 diabetes mellitus with diabetic peripheral angiopathy without gangrene; Z79.84 Long term (current) use of oral hypoglycemic drugs; Z79.899 Other long term (current) drug therapy; Z88.0 Allergy status to penicillin; Z88.2 Allergy status to sulfonamides; Z88.5 Allergy status to narcotic agent; Z88.8 Allergy status to other drugs, medicaments and biological substances
CPT/HCPCS: 96365; J0878

== ENCOUNTER 2024-03-17 01:46 | Day surgery (SDC) | payer MEDICARE ==
[~2024-03-17 01:46] MED LIST changes: -DAPTOmycin 350 MG in NS 50 ML IV SCH
[2024-03-17] MEDS ORDERED: DAPTOmycin 350 MG in NS 50 ML IV SCH (06:00)
[2024-03-17 09:25] VITALS: BP 139/51
== END 2024-03-17 09:46 | disposition home or self-care (01) ==
LOC: ATC 01:46
DX: E11.69 Type 2 diabetes mellitus with other specified complication (principal); M86.171 Other acute osteomyelitis, right ankle and foot; E11.43 Type 2 diabetes mellitus with diabetic autonomic (poly)neuropathy; K31.84 Gastroparesis; E11.51 Type 2 diabetes mellitus with diabetic peripheral angiopathy without gangrene; M20.21 Hallux rigidus, right foot; Z79.4 Long term (current) use of insulin; Z79.01 Long term (current) use of anticoagulants; Z79.899 Other long term (current) drug therapy; Z88.5 Allergy status to narcotic agent; Z88.0 Allergy status to penicillin; Z88.1 Allergy status to other antibiotic agents; Z88.2 Allergy status to sulfonamides; Z88.8 Allergy status to other drugs, medicaments and biological substances; Z90.710 Acquired absence of both cervix and uterus
CPT/HCPCS: 96365; J0878

== ENCOUNTER 2024-03-18 01:55 | Day surgery (SDC) | payer MEDICARE ==
[2024-03-18] MEDS ORDERED: DAPTOmycin 350 MG in NS 50 ML IV SCH (06:00)
[2024-03-18 09:33] VITALS: BP 113/101
== END 2024-03-18 09:51 | disposition home or self-care (01) ==
LOC: ATC 01:55
DX: E11.69 Type 2 diabetes mellitus with other specified complication (principal); M86.171 Other acute osteomyelitis, right ankle and foot; E11.51 Type 2 diabetes mellitus with diabetic peripheral angiopathy without gangrene; K21.9 Gastro-esophageal reflux disease without esophagitis; M20.21 Hallux rigidus, right foot; Z79.01 Long term (current) use of anticoagulants; Z79.4 Long term (current) use of insulin; Z79.899 Other long term (current) drug therapy; Z88.5 Allergy status to narcotic agent; Z88.0 Allergy status to penicillin; Z88.2 Allergy status to sulfonamides; Z88.8 Allergy status to other drugs, medicaments and biological substances; Z90.710 Acquired absence of both cervix and uterus; Z90.49 Acquired absence of other specified parts of digestive tract
CPT/HCPCS: 96365; J0878

== ENCOUNTER 2024-03-19 04:07 | Day surgery (SDC) | payer MEDICARE ==
[2024-03-19] MEDS ORDERED: DAPTOmycin 350 MG in NS 50 ML IV SCH (06:00)
[2024-03-19 09:32] VITALS: BP 124/55
== END 2024-03-19 09:50 | disposition home or self-care (01) ==
LOC: ATC 04:07
DX: E11.69 Type 2 diabetes mellitus with other specified complication (principal); M86.171 Other acute osteomyelitis, right ankle and foot; K21.9 Gastro-esophageal reflux disease without esophagitis; E11.43 Type 2 diabetes mellitus with diabetic autonomic (poly)neuropathy; K31.84 Gastroparesis; E11.51 Type 2 diabetes mellitus with diabetic peripheral angiopathy without gangrene; M20.21 Hallux rigidus, right foot; Z79.4 Long term (current) use of insulin; Z79.899 Other long term (current) drug therapy; Z88.5 Allergy status to narcotic agent; Z88.0 Allergy status to penicillin; Z88.2 Allergy status to sulfonamides; Z88.8 Allergy status to other drugs, medicaments and biological substances; Z90.49 Acquired absence of other specified parts of digestive tract; Z90.710 Acquired absence of both cervix and uterus
CPT/HCPCS: 96365; J0878

== ENCOUNTER 2024-03-20 01:51 | Day surgery (SDC) | payer MEDICARE ==
[2024-03-20] MEDS ORDERED: DAPTOmycin 350 MG in NS 50 ML IV SCH (06:00)
[2024-03-20 09:40] VITALS: BP 120/56
--- NOTE | 2024-03-20 11:07 | NUR ---
PICC DRESSING CHANGED TODAY. SECURED WITH STAT LOCK AND TEG CHG. NO ACUTE EVENTS NOTED.
== END 2024-03-20 10:10 | disposition home or self-care (01) ==
LOC: ATC 01:51
DX: E11.69 Type 2 diabetes mellitus with other specified complication (principal); M86.171 Other acute osteomyelitis, right ankle and foot; E78.5 Hyperlipidemia, unspecified; K21.9 Gastro-esophageal reflux disease without esophagitis; I48.0 Paroxysmal atrial fibrillation; I10 Essential (primary) hypertension
CPT/HCPCS: 96365; J0878

== ENCOUNTER 2024-03-21 04:29 | Day surgery (SDC) | payer MEDICARE ==
[2024-03-21] MEDS ORDERED: DAPTOmycin 700 MG in NS 50 ML IV SCH (06:00)
[2024-03-21 09:27] VITALS: BP 120/58
[2024-03-21 09:50] LABS: BASOPHILS ABSOLUTE AUTO 0.07 K/mm3 (0.00-0.23); BASOPHILS PERCENT AUTO 1 % (0-2); EOSINOPHILS ABSOLUTE AUTO 0.22 K/mm3 (0.00-0.68); EOSINOPHILS PERCENT AUTO 2 % (0-6); Hematocrit 39.2 % (33.0-51.0); Hemoglobin 12.5 g/dL (11.5-16.0); IMMATURE GRAN ABSOLUTE AUTO 0.01 K/mm3 (0.00-0.10); IMMATURE GRAN PERCENT AUTO 0 % (0-1); LYMPHOCYTES ABSOLUTE AUTO 4.67 K/mm3 (0.84-5.20); LYMPHOCYTES PERCENT AUTO 51 % (21-46); MONOCYTES ABSOLUTE AUTO 0.85 K/mm3 (0.16-1.47); MONOCYTES PERCENT AUTO 9 % (4-13); Mean Corpuscular HGB 30.6 pg (26.0-34.0); Mean Corpuscular HGB Conc 31.9 g/dL (31.5-36.5); Mean Corpuscular Volume 96 fL (80-100); Mean Platelet Volume 11.2 fL (9.1-12.4); NEUTROPHILS ABSOLUTE AUTO 3.33 K/mm3 (1.96-9.15); NEUTROPHILS PERCENT AUTO 36 % (41-73); Platelet Count 337 K/mm3 (150-400); RDW Coefficient Variation 14.7 % (11.7-14.2); RDW Standard Deviation 51.8 fL (35.1-46.3); Red Blood Cell Count 4.08 M/mm3 (3.80-5.20); White Blood Cell Count 9.15 K/mm3 (4.00-11.30)
[2024-03-21 10:37] LABS: C-REACTIVE PROTEIN, EXT RANGE 0.378 mg/dL (0.000-0.300)
[2024-03-21 10:41] LABS: Albumin, Blood 3.3 g/dL (3.4-5.0); Albumin/Globulin Ratio 0.8 (0.8-1.8); Bilirubin, Total 0.4 mg/dL (0.1-1.0); Bun/Creatinine Ratio 17.4 (12.0-20.0); Calcium, Blood 9.3 mg/dL (8.5-10.1); Creatinine, Blood 1.21 mg/dL (0.40-1.00); Globulin, Blood 3.9 g/dL (2.2-4.0); Potassium, Blood 4.2 mmol/L (3.5-5.5); Total Protein, Blood 7.2 g/dL (6.4-8.2)
== END 2024-03-21 09:48 | disposition home or self-care (01) ==
LOC: ATC 04:29
PROVIDERS: Internal Medicine Infectious Disease
DX: E11.69 Type 2 diabetes mellitus with other specified complication (principal); M86.171 Other acute osteomyelitis, right ankle and foot; J45.909 Unspecified asthma, uncomplicated; E78.5 Hyperlipidemia, unspecified; K21.9 Gastro-esophageal reflux disease without esophagitis; I10 Essential (primary) hypertension; I48.0 Paroxysmal atrial fibrillation; E53.8 Deficiency of other specified B group vitamins; Z79.84 Long term (current) use of oral hypoglycemic drugs; Z79.899 Other long term (current) drug therapy
CPT/HCPCS: 80053; 82550; 85025; 85651; 86140; 96365; J0878

== ENCOUNTER 2024-03-22 05:19 | Day surgery (SDC) | payer MEDICARE ==
[2024-03-22] MEDS ORDERED: DAPTOmycin 700 MG in NS 50 ML IV SCH (06:00)
[2024-03-22 09:26] VITALS: BP 101/82
== END 2024-03-22 09:50 | disposition home or self-care (01) ==
LOC: ATC 05:19
DX: E11.69 Type 2 diabetes mellitus with other specified complication (principal); M86.171 Other acute osteomyelitis, right ankle and foot; E11.43 Type 2 diabetes mellitus with diabetic autonomic (poly)neuropathy; K31.84 Gastroparesis; I48.0 Paroxysmal atrial fibrillation; I10 Essential (primary) hypertension; K21.9 Gastro-esophageal reflux disease without esophagitis; E78.5 Hyperlipidemia, unspecified; Z86.73 Personal history of transient ischemic attack (TIA), and cerebral infarction without residual deficits; Z79.01 Long term (current) use of anticoagulants; Z79.4 Long term (current) use of insulin; Z79.84 Long term (current) use of oral hypoglycemic drugs; Z79.899 Other long term (current) drug therapy; Z88.5 Allergy status to narcotic agent; Z88.0 Allergy status to penicillin; Z88.2 Allergy status to sulfonamides; Z88.8 Allergy status to other drugs, medicaments and biological substances
CPT/HCPCS: 96365; J0878

== ENCOUNTER 2024-03-24 09:20 | Day surgery (SDC) | payer MEDICARE ==
[~2024-03-24 09:20] MED LIST changes: +DAPTOmycin 700 MG in NS 50 ML IV SCH
[2024-03-24 09:30] VITALS: BP 131/62
== END 2024-03-24 10:00 | disposition home or self-care (01) ==
LOC: ATC 09:20
DX: E11.69 Type 2 diabetes mellitus with other specified complication (principal); M86.171 Other acute osteomyelitis, right ankle and foot; J45.909 Unspecified asthma, uncomplicated; E78.5 Hyperlipidemia, unspecified; K21.9 Gastro-esophageal reflux disease without esophagitis; I10 Essential (primary) hypertension; I48.0 Paroxysmal atrial fibrillation
CPT/HCPCS: 96365; J0878

== ENCOUNTER 2024-03-25 03:11 | Day surgery (SDC) | payer MEDICARE ==
[~2024-03-25 03:11] MED LIST changes: -DAPTOmycin 700 MG in NS 50 ML IV SCH
[2024-03-25] MEDS ORDERED: DAPTOmycin 700 MG in NS 50 ML IV SCH (07:15)
[2024-03-25 09:57] VITALS: BP 115/57
== END 2024-03-25 10:26 | disposition home or self-care (01) ==
LOC: ATC 03:11
DX: E11.69 Type 2 diabetes mellitus with other specified complication (principal); M86.171 Other acute osteomyelitis, right ankle and foot; E78.5 Hyperlipidemia, unspecified; K21.9 Gastro-esophageal reflux disease without esophagitis; I48.0 Paroxysmal atrial fibrillation; E11.43 Type 2 diabetes mellitus with diabetic autonomic (poly)neuropathy; K31.84 Gastroparesis; Z79.01 Long term (current) use of anticoagulants; Z79.84 Long term (current) use of oral hypoglycemic drugs; Z79.4 Long term (current) use of insulin; Z79.899 Other long term (current) drug therapy; Z88.0 Allergy status to penicillin; Z88.2 Allergy status to sulfonamides; Z88.5 Allergy status to narcotic agent; Z88.8 Allergy status to other drugs, medicaments and biological substances; Z90.49 Acquired absence of other specified parts of digestive tract; Z86.73 Personal history of transient ischemic attack (TIA), and cerebral infarction without residual deficits
CPT/HCPCS: 96365; J0878

== ENCOUNTER 2024-03-26 03:55 | Day surgery (SDC) | payer MEDICARE ==
[2024-03-26] MEDS ORDERED: DAPTOMYCIN IV SCH (06:00)
[2024-03-26] MEDS ORDERED: NS IV SCH (06:00)
[2024-03-26 09:30] VITALS: BP 122/64
== END 2024-03-26 09:54 | disposition home or self-care (01) ==
LOC: ATC 03:55
DX: E11.69 Type 2 diabetes mellitus with other specified complication (principal); M86.171 Other acute osteomyelitis, right ankle and foot; J45.909 Unspecified asthma, uncomplicated; I48.0 Paroxysmal atrial fibrillation; I10 Essential (primary) hypertension; K21.9 Gastro-esophageal reflux disease without esophagitis; E11.43 Type 2 diabetes mellitus with diabetic autonomic (poly)neuropathy; K31.84 Gastroparesis; Z79.899 Other long term (current) drug therapy
CPT/HCPCS: 96365; J0878

== ENCOUNTER 2024-03-27 05:23 | Day surgery (SDC) | payer MEDICARE ==
[2024-03-27] MEDS ORDERED: DAPTOmycin 700 MG in NS 50 ML IV SCH (06:00)
[2024-03-27 09:26] VITALS: BP 107/65
== END 2024-03-27 09:57 | disposition home or self-care (01) ==
LOC: ATC 05:23
DX: E11.69 Type 2 diabetes mellitus with other specified complication (principal); M86.171 Other acute osteomyelitis, right ankle and foot; J45.909 Unspecified asthma, uncomplicated; F32.A Depression, unspecified; E78.5 Hyperlipidemia, unspecified; K21.9 Gastro-esophageal reflux disease without esophagitis; E11.43 Type 2 diabetes mellitus with diabetic autonomic (poly)neuropathy; K31.84 Gastroparesis; I10 Essential (primary) hypertension; Z79.899 Other long term (current) drug therapy
CPT/HCPCS: 96365; J0878

== ENCOUNTER 2024-03-28 03:34 | Day surgery (SDC) | payer MEDICARE ==
[2024-03-28] MEDS ORDERED: DAPTOmycin 700 MG in NS 50 ML IV SCH (06:00)
[2024-03-28 09:30] VITALS: BP 115/65
[2024-03-28 10:35] LABS: BASOPHILS ABSOLUTE AUTO 0.08 K/mm3 (0.00-0.23); BASOPHILS PERCENT AUTO 1 % (0-2); EOSINOPHILS ABSOLUTE AUTO 0.17 K/mm3 (0.00-0.68); EOSINOPHILS PERCENT AUTO 3 % (0-6); Hematocrit 38.7 % (33.0-51.0); Hemoglobin 12.8 g/dL (11.5-16.0); IMMATURE GRAN PERCENT AUTO 0 % (0-1); LYMPHOCYTES ABSOLUTE AUTO 3.35 K/mm3 (0.84-5.20); LYMPHOCYTES PERCENT AUTO 53 % (21-46); MONOCYTES PERCENT AUTO 11 % (4-13); Mean Corpuscular HGB 31.1 pg (26.0-34.0); Mean Corpuscular HGB Conc 33.1 g/dL (31.5-36.5); Mean Corpuscular Volume 94 fL (80-100); Mean Platelet Volume 11.2 fL (9.1-12.4); NEUTROPHILS ABSOLUTE AUTO 2.08 K/mm3 (1.96-9.15); NEUTROPHILS PERCENT AUTO 33 % (41-73); Platelet Count 316 K/mm3 (150-400); RDW Coefficient Variation 14.7 % (11.7-14.2); RDW Standard Deviation 51.4 fL (35.1-46.3); Red Blood Cell Count 4.11 M/mm3 (3.80-5.20); White Blood Cell Count 6.38 K/mm3 (4.00-11.30)
[2024-03-28 11:09] LABS: C-REACTIVE PROTEIN, EXT RANGE 0.534 mg/dL (0.000-0.300)
[2024-03-28 11:14] LABS: Albumin, Blood 3.4 g/dL (3.4-5.0); Albumin/Globulin Ratio 0.8 (0.8-1.8); Bilirubin, Total 0.6 mg/dL (0.1-1.0); Bun/Creatinine Ratio 25.2 (12.0-20.0); Calcium, Blood 9.3 mg/dL (8.5-10.1); Creatinine, Blood 1.11 mg/dL (0.40-1.00); Potassium, Blood 4.2 mmol/L (3.5-5.5); Total Protein, Blood 7.4 g/dL (6.4-8.2)
== END 2024-03-28 10:00 | disposition home or self-care (01) ==
LOC: ATC 03:34
PROVIDERS: Internal Medicine Infectious Disease
DX: E11.69 Type 2 diabetes mellitus with other specified complication (principal); M86.171 Other acute osteomyelitis, right ankle and foot; J45.909 Unspecified asthma, uncomplicated; E78.5 Hyperlipidemia, unspecified; F32.A Depression, unspecified; E11.43 Type 2 diabetes mellitus with diabetic autonomic (poly)neuropathy; K31.84 Gastroparesis; I10 Essential (primary) hypertension; I48.0 Paroxysmal atrial fibrillation; Z79.01 Long term (current) use of anticoagulants; Z79.4 Long term (current) use of insulin; Z79.899 Other long term (current) drug therapy
CPT/HCPCS: 80053; 82550; 85025; 85651; 86140; 96365; C1751; J0878

== ENCOUNTER 2024-03-29 02:15 | Day surgery (SDC) | payer MEDICARE ==
[2024-03-29] MEDS ORDERED: DAPTOMYCIN IV SCH (06:00)
[2024-03-29] MEDS ORDERED: NS IV SCH (06:00)
[2024-03-29 09:33] VITALS: BP 99/54
== END 2024-03-29 10:01 | disposition home or self-care (01) ==
LOC: ATC 02:15
DX: E11.69 Type 2 diabetes mellitus with other specified complication (principal); M86.171 Other acute osteomyelitis, right ankle and foot; J45.909 Unspecified asthma, uncomplicated; I10 Essential (primary) hypertension; K21.9 Gastro-esophageal reflux disease without esophagitis; I48.91 Unspecified atrial fibrillation; Z79.01 Long term (current) use of anticoagulants; Z79.84 Long term (current) use of oral hypoglycemic drugs; Z79.4 Long term (current) use of insulin; Z79.899 Other long term (current) drug therapy; Z88.0 Allergy status to penicillin; Z88.1 Allergy status to other antibiotic agents; Z88.5 Allergy status to narcotic agent; Z88.8 Allergy status to other drugs, medicaments and biological substances
CPT/HCPCS: 96365; J0878

== ENCOUNTER 2024-03-30 09:21 | Day surgery (SDC) | payer MEDICARE ==
[~2024-03-30 09:21] MED LIST changes: +DAPTOMYCIN IV SCH; +NS IV SCH
[2024-03-30 09:32] VITALS: BP 122/45
== END 2024-03-30 09:58 | disposition home or self-care (01) ==
LOC: ATC 09:21
DX: E11.69 Type 2 diabetes mellitus with other specified complication (principal); M86.171 Other acute osteomyelitis, right ankle and foot; I10 Essential (primary) hypertension; E78.5 Hyperlipidemia, unspecified; J45.909 Unspecified asthma, uncomplicated; I48.0 Paroxysmal atrial fibrillation; Z88.0 Allergy status to penicillin; Z88.1 Allergy status to other antibiotic agents; Z88.5 Allergy status to narcotic agent; Z79.01 Long term (current) use of anticoagulants; Z79.4 Long term (current) use of insulin; Z79.84 Long term (current) use of oral hypoglycemic drugs; Z79.899 Other long term (current) drug therapy
CPT/HCPCS: 96365; J0878

== ENCOUNTER 2024-03-31 03:19 | Day surgery (SDC) | payer MEDICARE ==
[~2024-03-31 03:19] MED LIST changes: -DAPTOMYCIN IV SCH; -NS IV SCH
[2024-03-31] MEDS ORDERED: DAPTOMYCIN IV SCH (06:00)
[2024-03-31] MEDS ORDERED: NS IV SCH (06:00)
[2024-03-31 09:35] VITALS: BP 125/69
== END 2024-03-31 09:58 | disposition home or self-care (01) ==
LOC: ATC 03:19
DX: E11.69 Type 2 diabetes mellitus with other specified complication (principal); M86.171 Other acute osteomyelitis, right ankle and foot; E11.43 Type 2 diabetes mellitus with diabetic autonomic (poly)neuropathy; K31.84 Gastroparesis; K21.9 Gastro-esophageal reflux disease without esophagitis; I48.0 Paroxysmal atrial fibrillation; Z79.01 Long term (current) use of anticoagulants; Z79.84 Long term (current) use of oral hypoglycemic drugs; Z79.4 Long term (current) use of insulin; Z79.899 Other long term (current) drug therapy; Z88.5 Allergy status to narcotic agent; Z88.2 Allergy status to sulfonamides; Z88.0 Allergy status to penicillin; Z88.8 Allergy status to other drugs, medicaments and biological substances; Z90.49 Acquired absence of other specified parts of digestive tract; Z86.73 Personal history of transient ischemic attack (TIA), and cerebral infarction without residual deficits
CPT/HCPCS: J0878

== ENCOUNTER 2024-04-03 05:09 | Day surgery (SDC) | payer MEDICARE ==
[2024-04-03] MEDS ORDERED: DAPTOMYCIN IV SCH (06:00)
[2024-04-03] MEDS ORDERED: NS IV SCH (06:00)
[2024-04-03 09:36] VITALS: BP 135/68
[2024-04-03 10:01] VITALS: BP 123/57
== END 2024-04-03 10:04 | disposition home or self-care (01) ==
LOC: ATC 05:09
DX: M86.9 Osteomyelitis, unspecified (principal); J45.909 Unspecified asthma, uncomplicated; I10 Essential (primary) hypertension; E11.9 Type 2 diabetes mellitus without complications; I48.0 Paroxysmal atrial fibrillation
CPT/HCPCS: 96365; J0878

== ENCOUNTER 2024-04-11 09:19 | Day surgery (SDC) | payer MEDICARE ==
[~2024-04-11 09:19] MED LIST changes: +DAPTOMYCIN IV SCH; +NS IV SCH
[2024-04-11 09:25] VITALS: BP 116/59
[2024-04-11 10:48] LABS: BASOPHILS ABSOLUTE AUTO 0.04 K/mm3 (0.00-0.23); BASOPHILS PERCENT AUTO 1 % (0-2); EOSINOPHILS ABSOLUTE AUTO 0.21 K/mm3 (0.00-0.68); EOSINOPHILS PERCENT AUTO 3 % (0-6); Hematocrit 37.6 % (33.0-51.0); Hemoglobin 12.2 g/dL (11.5-16.0); IMMATURE GRAN ABSOLUTE AUTO 0.01 K/mm3 (0.00-0.10); IMMATURE GRAN PERCENT AUTO 0 % (0-1); LYMPHOCYTES ABSOLUTE AUTO 3.64 K/mm3 (0.84-5.20); LYMPHOCYTES PERCENT AUTO 53 % (21-46); MONOCYTES ABSOLUTE AUTO 0.65 K/mm3 (0.16-1.47); MONOCYTES PERCENT AUTO 9 % (4-13); Mean Corpuscular HGB 30.8 pg (26.0-34.0); Mean Corpuscular HGB Conc 32.4 g/dL (31.5-36.5); Mean Corpuscular Volume 95 fL (80-100); Mean Platelet Volume 11.1 fL (9.1-12.4); NEUTROPHILS ABSOLUTE AUTO 2.33 K/mm3 (1.96-9.15); NEUTROPHILS PERCENT AUTO 34 % (41-73); Platelet Count 282 K/mm3 (150-400); RDW Coefficient Variation 14.4 % (11.7-14.2); RDW Standard Deviation 50.3 fL (35.1-46.3); Red Blood Cell Count 3.96 M/mm3 (3.80-5.20); White Blood Cell Count 6.88 K/mm3 (4.00-11.30)
[2024-04-11 11:15] LABS: C-REACTIVE PROTEIN, EXT RANGE 0.583 mg/dL (0.000-0.300)
[2024-04-11 11:21] LABS: Albumin, Blood 3.1 g/dL (3.4-5.0); Albumin/Globulin Ratio 0.8 (0.8-1.8); Bilirubin, Total 0.5 mg/dL (0.1-1.0); Bun/Creatinine Ratio 24.6 (12.0-20.0); Calcium, Blood 9.3 mg/dL (8.5-10.1); Creatinine, Blood 1.14 mg/dL (0.40-1.00); Globulin, Blood 3.9 g/dL (2.2-4.0); Potassium, Blood 4.3 mmol/L (3.5-5.5)
== END 2024-04-11 09:52 | disposition home or self-care (01) ==
LOC: ATC 09:19
PROVIDERS: Internal Medicine Infectious Disease
DX: E11.69 Type 2 diabetes mellitus with other specified complication (principal); M86.171 Other acute osteomyelitis, right ankle and foot; I10 Essential (primary) hypertension; I48.0 Paroxysmal atrial fibrillation; K21.9 Gastro-esophageal reflux disease without esophagitis; E11.43 Type 2 diabetes mellitus with diabetic autonomic (poly)neuropathy; K31.84 Gastroparesis; E78.5 Hyperlipidemia, unspecified; Z90.49 Acquired absence of other specified parts of digestive tract; Z79.01 Long term (current) use of anticoagulants; Z79.4 Long term (current) use of insulin; Z79.84 Long term (current) use of oral hypoglycemic drugs; Z79.899 Other long term (current) drug therapy; Z88.0 Allergy status to penicillin; Z88.2 Allergy status to sulfonamides; Z88.1 Allergy status to other antibiotic agents; Z88.5 Allergy status to narcotic agent; Z88.8 Allergy status to other drugs, medicaments and biological substances
CPT/HCPCS: 80053; 82550; 85025; 85651; 86140; 96365; J0878

== ENCOUNTER 2024-04-12 02:03 | Day surgery (SDC) | payer MEDICARE ==
[~2024-04-12 02:03] MED LIST changes: -DAPTOMYCIN IV SCH; -NS IV SCH
[2024-04-12] MEDS ORDERED: NS IV SCH (06:00)
[2024-04-12] MEDS ORDERED: DAPTOMYCIN IV SCH (06:00)
[2024-04-12 09:28] VITALS: BP 110/64
== END 2024-04-12 09:50 | disposition home or self-care (01) ==
LOC: ATC 02:03
DX: E11.69 Type 2 diabetes mellitus with other specified complication (principal); M86.171 Other acute osteomyelitis, right ankle and foot; E11.43 Type 2 diabetes mellitus with diabetic autonomic (poly)neuropathy; K31.84 Gastroparesis; K21.9 Gastro-esophageal reflux disease without esophagitis; I10 Essential (primary) hypertension; E78.5 Hyperlipidemia, unspecified; I48.0 Paroxysmal atrial fibrillation; Z79.01 Long term (current) use of anticoagulants; Z79.4 Long term (current) use of insulin; Z79.84 Long term (current) use of oral hypoglycemic drugs; Z88.0 Allergy status to penicillin; Z79.899 Other long term (current) drug therapy; Z88.5 Allergy status to narcotic agent; Z88.2 Allergy status to sulfonamides; Z88.8 Allergy status to other drugs, medicaments and biological substances; Z90.49 Acquired absence of other specified parts of digestive tract
CPT/HCPCS: 96365; J0878

== ENCOUNTER 2024-04-13 05:30 | Day surgery (SDC) | payer MEDICARE ==
[2024-04-13] MEDS ORDERED: NS IV SCH (06:00)
[2024-04-13] MEDS ORDERED: DAPTOMYCIN IV SCH (06:00)
[2024-04-13 09:27] VITALS: BP 113/61
== END 2024-04-13 09:51 | disposition home or self-care (01) ==
LOC: ATC 05:30
DX: E11.69 Type 2 diabetes mellitus with other specified complication (principal); M86.171 Other acute osteomyelitis, right ankle and foot; J45.909 Unspecified asthma, uncomplicated; E78.5 Hyperlipidemia, unspecified; K21.9 Gastro-esophageal reflux disease without esophagitis; I48.0 Paroxysmal atrial fibrillation
CPT/HCPCS: 96365; J0878

== ENCOUNTER 2024-04-14 02:15 | Day surgery (SDC) | payer MEDICARE ==
[2024-04-14] MEDS ORDERED: DAPTOmycin 700 MG in NS 50 ML IV SCH (06:00)
[2024-04-14 09:32] VITALS: BP 129/54
== END 2024-04-14 09:55 | disposition home or self-care (01) ==
LOC: ATC 02:15
DX: E11.69 Type 2 diabetes mellitus with other specified complication (principal); M86.171 Other acute osteomyelitis, right ankle and foot; I48.0 Paroxysmal atrial fibrillation; I10 Essential (primary) hypertension; K21.9 Gastro-esophageal reflux disease without esophagitis; E11.43 Type 2 diabetes mellitus with diabetic autonomic (poly)neuropathy; K31.84 Gastroparesis; E78.5 Hyperlipidemia, unspecified; Z79.01 Long term (current) use of anticoagulants; Z79.4 Long term (current) use of insulin; Z79.84 Long term (current) use of oral hypoglycemic drugs; Z79.899 Other long term (current) drug therapy; Z88.0 Allergy status to penicillin; Z88.2 Allergy status to sulfonamides; Z88.1 Allergy status to other antibiotic agents; Z88.5 Allergy status to narcotic agent; Z88.8 Allergy status to other drugs, medicaments and biological substances; Z90.49 Acquired absence of other specified parts of digestive tract; Z86.73 Personal history of transient ischemic attack (TIA), and cerebral infarction without residual deficits
CPT/HCPCS: 96365; J0878

== ENCOUNTER 2024-04-15 00:55 | Day surgery (SDC) | payer MEDICARE ==
[2024-04-15] MEDS ORDERED: DAPTOMYCIN IV SCH (06:00)
[2024-04-15] MEDS ORDERED: NS IV SCH (06:00)
[2024-04-15 09:31] VITALS: BP 130/61
== END 2024-04-15 09:55 | disposition home or self-care (01) ==
LOC: ATC 00:55
DX: E11.69 Type 2 diabetes mellitus with other specified complication (principal); M86.171 Other acute osteomyelitis, right ankle and foot; F32.A Depression, unspecified; K21.9 Gastro-esophageal reflux disease without esophagitis; I10 Essential (primary) hypertension; I48.0 Paroxysmal atrial fibrillation
CPT/HCPCS: 96365; J0878

== ENCOUNTER 2024-04-16 00:49 | Day surgery (SDC) | payer MEDICARE ==
[2024-04-16] MEDS ORDERED: DAPTOmycin 700 MG in NS 50 ML IV SCH (06:00)
[2024-04-16 09:34] VITALS: BP 146/62
== END 2024-04-16 09:54 | disposition home or self-care (01) ==
LOC: ATC 00:49
DX: E11.69 Type 2 diabetes mellitus with other specified complication (principal); M86.171 Other acute osteomyelitis, right ankle and foot; E78.5 Hyperlipidemia, unspecified; K21.9 Gastro-esophageal reflux disease without esophagitis; I10 Essential (primary) hypertension; I48.0 Paroxysmal atrial fibrillation; Z79.01 Long term (current) use of anticoagulants; Z79.4 Long term (current) use of insulin; Z79.899 Other long term (current) drug therapy
CPT/HCPCS: 96365; J0878

== ENCOUNTER 2024-04-17 00:17 | Day surgery (SDC) | payer MEDICARE ==
[2024-04-17] MEDS ORDERED: NS IV SCH (06:00)
[2024-04-17] MEDS ORDERED: DAPTOMYCIN IV SCH (06:00)
[2024-04-17 09:32] VITALS: BP 116/51
== END 2024-04-17 09:54 | disposition home or self-care (01) ==
LOC: ATC 00:17
DX: E11.69 Type 2 diabetes mellitus with other specified complication (principal); M86.171 Other acute osteomyelitis, right ankle and foot; I48.0 Paroxysmal atrial fibrillation; I10 Essential (primary) hypertension; K21.9 Gastro-esophageal reflux disease without esophagitis; E78.5 Hyperlipidemia, unspecified; E11.43 Type 2 diabetes mellitus with diabetic autonomic (poly)neuropathy; K31.84 Gastroparesis; Z88.0 Allergy status to penicillin; Z88.5 Allergy status to narcotic agent; Z88.2 Allergy status to sulfonamides; Z88.1 Allergy status to other antibiotic agents; Z88.8 Allergy status to other drugs, medicaments and biological substances; Z79.01 Long term (current) use of anticoagulants; Z79.84 Long term (current) use of oral hypoglycemic drugs; Z79.4 Long term (current) use of insulin; Z79.899 Other long term (current) drug therapy; Z86.73 Personal history of transient ischemic attack (TIA), and cerebral infarction without residual deficits
CPT/HCPCS: 96365; J0878